=== PATIENT | male | born 1990 | race Caucasian/White ===

== ENCOUNTER 2022-08-14 21:29 | Emergency (ER) | payer OTHER ==
[~2022-08-14] VITALS: Ht 180.3 cm; Wt 79.5 kg
[2022-08-14 21:52] VITALS: BP 133/71
[2022-08-14] MEDS ORDERED: BACITRACIN 0.9 GM PACKET OINTMENT TP ONE (22:30)
[2022-08-14] MEDS ORDERED: LIDOCAINE 1%/EPI 1:200,000/PF 30 ML VIAL SQ ONE (22:30)
== END 2022-08-15 00:59 | disposition home or self-care (01) ==
LOC: EMS 21:31
DX: S01.112A Laceration without foreign body of left eyelid and periocular area, initial encounter (principal); F17.210 Nicotine dependence, cigarettes, uncomplicated; W50.0XXA Accidental hit or strike by another person, initial encounter; Y93.39 Activity, other involving climbing, rappelling and jumping off; Y92.89 Other specified places as the place of occurrence of the external cause; Y99.8 Other external cause status
CPT/HCPCS: 99282; 12011; J3490

== ENCOUNTER 2024-02-04 14:02 | Emergency (ER) | payer OTHER ==
[~2024-02-04] VITALS: Ht 180.3 cm; Wt 75.0 kg
[2024-02-04 14:09] VITALS: TEMP 97.9
[2024-02-04] MEDS: PERTUSS(ACELL),DIPH,TET/PF 0.5 ML SYRINGE [ADULT] IM. ONE (15:20)
[2024-02-04] MEDS: LIDOCAINE 1% 10 ML VIAL ID ONE (15:21)
[2024-02-04] MEDS ORDERED: CEPH-558 PO (16:15)
[2024-02-04] MEDS ORDERED: IBUP-1506 PO (16:15)
[2024-02-04 16:23] VITALS: BP 127/76; PULSE 68; RESP 16
[2024-02-04] MEDS: CeFAZolin SODIUM 1 GM VIAL IM ONE (16:25)
[2024-02-04] MEDS: BACITRACIN 0.9 GM PACKET OINTMENT TP ONE (16:25)
[2024-02-04] MEDS: HYDROCODONE/ACETAMINOPHEN 5-325 MG TABLET PO ONE (16:26)
== END 2024-02-04 16:23 | disposition home or self-care (01) ==
LOC: EMS 14:02
DX: S61.412A Laceration without foreign body of left hand, initial encounter (principal); S62.665A Nondisplaced fracture of distal phalanx of left ring finger, initial encounter for closed fracture; F17.210 Nicotine dependence, cigarettes, uncomplicated; X58.XXXA Exposure to other specified factors, initial encounter; Y93.89 Activity, other specified; Y92.89 Other specified places as the place of occurrence of the external cause; Y99.8 Other external cause status
CPT/HCPCS: 99284; 73140; 90715; 90471; 12001; 96372; J0690; J3490

== ENCOUNTER 2025-06-22 21:38 | Emergency (ER) | payer MEDICAID, OTHER ==
[~2025-06-22] VITALS: Ht 170.2 cm; Wt 81.8 kg
[~2025-06-22 21:38] MED LIST: CEPH-558 PO; IBUP-1506 PO
[2025-06-22 22:26] VITALS: BP 128/81; PULSE 84; RESP 12; TEMP 98.1; O2SAT 95
[2025-06-22] MEDS: ACETAMINOPHEN 500 MG TABLET PO ONE (23:11)
[2025-06-22] MEDS: IBUPROFEN 400 MG TABLET PO ONE (23:11)
== END 2025-06-23 00:45 | disposition home or self-care (01) ==
LOC: EMS 21:38
DX: S93.412A Sprain of calcaneofibular ligament of left ankle, initial encounter (principal); F17.210 Nicotine dependence, cigarettes, uncomplicated; Z79.899 Other long term (current) drug therapy; X50.1XXA Overexertion from prolonged static or awkward postures, initial encounter; Y93.66 Activity, soccer; Y92.89 Other specified places as the place of occurrence of the external cause; Y99.8 Other external cause status
CPT/HCPCS: 99283